=== PATIENT | male | born 1950 | race Caucasian/White ===

== ENCOUNTER → 2020-12-01 11:25 | Outpatient (BNVA) | payer OTHER, SELFPAY | PROVIDERS: Visit Provider Internal Medicine | DX: S63.501A Unspecified sprain of right wrist, initial encounter (principal); X50.1XXA Overexertion from prolonged static or awkward postures, initial encounter | CPT/HCPCS: 29125; 73110; 99203 ==

== ENCOUNTER → 2020-12-15 10:29 | Outpatient (BNVA) | payer OTHER, SELFPAY | PROVIDERS: Visit Provider Physician Assistant | DX: M25.531 Pain in right wrist (principal) | CPT/HCPCS: 99213 ==

== ENCOUNTER 2021-10-27 11:28 | Emergency (ER) | payer OTHER, SELFPAY ==
[2021-10-27 11:50] VITALS: BP 140/90; PULSE 67; RESP 18; TEMP 36.9; O2SAT 96; BMI 25.8
--- NOTE | 2021-10-27 12:59 | ED.WOUNDLAC ---
HPI - Wound/Laceration General Chief Complaint: Wound/Laceration Stated Complaint: neck lac/injury - sent from Time Seen by Provider: 10/27/21 12:52 Source: patient History of Present Illness HPI narrative: Patient states he tripped and fell at work and struck his chin on some metal on the ground. No loss of consciousness. He denies significant jaw pain. He can bite down without difficulty. No significant bleeding. He presents for stitches. No voice change. He thinks he is due for a tetanus shot Related Data Previous Rx's Medication Instructions Recorded cephalexin 500 mg capsule 1,000 mg PO BID #20 cap 10/27/21 Allergies Allergy/AdvReac Type Severity Reaction Status Date / Time pollen extracts Allergy Nasal Verified 10/27/21 12:29 congestion Review of Systems Constitutional: Comments: No fevers or chills. No weakness ENT: Comments: No malocclusion [facility] Social History Social History Advance Directives: No Advance Directives Information Provided: No Physical Exam Vital Signs: Vital Signs: Last Vital Signs Temp 98.4 F 10/27/21 11:50 Pulse 67 10/27/21 11:50 Resp 18 10/27/21 11:50 BP 140/90 H 10/27/21 11:50 Pulse Ox 96 10/27/21 11:50 BMI result Body Mass Index 25.8 Const: Other: Awake alert in no acute distress HEENT: Other: Patient able to light down without discomfort. No obvious bony malformation. Large laceration longitudinally from angle of jaw down to neck. Minimal bleeding at this time. No stridor Resp: Other: Respirations unlabored Skin: Other: Approximately 8 cm laceration as described above. Minimal bleeding. During suturing, wound was explored thoroughly. It does not extend down to the deep structures. There is no evidence of deep puncture injury anywhere. Neuro: Other: Normal Course Course Course Narrative: Jaw and upper neck laceration as described. Although wound is in concerning area, thorough evaluation shows no evidence of deep structure injury. Wound is sutured primarily in the emergency department. Imaging not required Procedures Laceration Laceration 1: Site: face and neck Size (cm): 8 Description: linear Depth: simple, single layer Local Anesthetic: lidocaine 1% Amount of anesthesia used (mL): 10 Pre-repair: wound explored, irrigated extensively and deep structures intact Skin layer closed with: vicryl Size (cm): 5-0 Number of sutures: 8 Technique: running Technique: other (Patient tolerated the procedure well. Good results and good hemostasis.) Discharge Plan Discharge Clinical Impression: Laceration Patient Disposition: Home, Self-Care Instructions: Laceration (ED), Care For Your Absorbable Stitches (ED) Additional Instructions: Sutures will absorb on their own. Keep them clean and dry. It is okay to shower. Blot dry and do not rub the incision area Prescriptions: New cephalexin 500 mg capsule 1,000 mg PO BID Qty: 20 0RF
[2021-10-27] MEDS: Lidocaine HCl 1 % MPF 5 ML VIAL 10 ML INFILTRATI (13:13)
[2021-10-27] MEDS: Diphth,Pertus(ACell),Tet Adult 0.5 ML SYRINGE IM (13:42)
== END 2021-10-27 14:01 | disposition home or self-care (01) ==
PROVIDERS: Emergency Provider Emergency Medicine
DX: S11.91XA Laceration without foreign body of unspecified part of neck, initial encounter (principal); S01.81XA Laceration without foreign body of other part of head, initial encounter; W01.118A Fall on same level from slipping, tripping and stumbling with subsequent striking against other sharp object, initial encounter; Y93.9 Activity, unspecified; Y92.9 Unspecified place or not applicable; Y99.0 Civilian activity done for income or pay
CPT/HCPCS: 12004; 90471; 90715; 99283; 99284